=== PATIENT | male | born 1945 | race Caucasian/White ===

== ENCOUNTER → 2023-09-04 07:03 | Outpatient (REF) | payer MEDICARE, OTHER, SELFPAY ==
[2023-09-04 10:41] LABS: Albumin 3.1 g/dl (3.5-5.0); Blood Urea Nitrogen 29 mg/dl (9-20); Calcium 9.1 mg/dl (8.4-10.2); Carbon Dioxide 22 mmol/L (22-30); Chloride 104 mmol/L (98-107); Glucose 169 mg/dl (70-99); Phosphorus 4.4 mg/dl (2.5-4.5); Potassium 4.1 mmol/L (3.5-5.1); Sodium 136 mmol/L (135-145); eGFR 32.02
[2023-09-06 23:39] LABS: 24 Hour Urine Total Volume Random mL; Urine Collection Length Random hr; Urine Free Kappa Light Chains 56.08 mg/L (0.00-32.90); Urine Free Lambda Light Chains 13.77 mg/L (0.00-3.79)
[2023-09-07 23:58] LABS: Alpha 1 Globulin 0.34 g/dL (0.19-0.46); Alpha 2 Globulin 0.87 g/dL (0.48-1.05); SPEP IFE Reflex Not Done; Total Protein-Electrophoresis 6.4 g/dL (6.3-8.2)
== END ==
LOC: RAD 07:03
PROVIDERS: ATTENDING PHYSICIAN Specialist; FAMILY PHYSICIAN Family Medicine
DX: R80.9 Proteinuria, unspecified (principal)
CPT/HCPCS: 36415; 76770; 80069; 83521; 84155; 84156; 84165; 86335